=== PATIENT | female | born 1960 | race Caucasian/White ===

== ENCOUNTER 2018-01-22 22:20 | Emergency (ER) | payer SELFPAY ==
[2018-01-22 22:20] VITALS: BP 136/81; PULSE 75; RESP 15; TEMP 36; O2SAT 98; BMI 22.6
--- NOTE | 2018-01-22 23:06 | EKG12_ITS ---
Test Reason : SOB Blood Pressure : / mmHG Vent. Rate : 076 BPM Atrial Rate : 076 BPM P-R Int : 148 ms QRS Dur : 092 ms QT Int : 400 ms P-R-T Axes : 062 012 024 degrees QTc Int : 450 ms Normal sinus rhythm Normal ECG Confirmed by GERMAN WILSON, JAHAIRA ([id number]), web editor ODESSA CRUZ ([id number] on 01/28/2018 2:00:48 PM Referred By: JATIN Confirmed By:JAHAIRA PORTER MD
--- NOTE | 2018-01-22 23:07 | ED.VISSUMM ---
- ER Visit Summary Date of Service: 01/22/18 Chief Complaint: Shortness of breath History of Present Illness: The patient is a 57 F who states that 2-3 weeks ago she had a tooth pulled on the right lower side. Since that time she notes sinus congestion headache neckache shortness of breath fatigue irritability weak and dizzy. States tonight she went to get off the couch and her heart rate was in the 90s. No distinct chest pain. She sees a homeopathic doctor. Physical Examination: Afebrile vital signs are stable Gen: Well-nourished well-developed Head: Normocephalic atraumatic Eyes: Perrl EOMI ENT: TMs clear no rhinorrhea moist mucous membranes Neck: Supple no lymphadenopathy no JVD nontender CVS: Regular rate rhythm no murmurs normal S1-S2 Respiratory: No distress clear to auscultation bilaterally chest nontender Abdomen: Soft nontender nondistended normal bowel sounds no masses Back: Nontender Extremity: Nontender no edema Skin: Normal color no rash Neuro: alert orientated ?3 CN II-XII intact normal strength sensation reflexes gait cerebellar Psych: Anxious Test Results: CBC chemistries liver negative troponin less than 0.02. TSH within the normal range EKG sinus at a rate of 76. Chest x-ray showed chronic changes. Emergency Department Course and Treatment: Patient did not wish to have anything for her headache she was offered Toradol. Patient has fairly vague symptoms. I do not find anything focal on exam. I do not believe this to be stroke, pulmonary embolism, ACS. She is current chest x-ray showed chronic changes. She smoked only for small amount of time in her 20s. 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 I do not hear any wheezing suspect that this is a pulmonary source. Patient is going to be referred to primary care. Impression: 1. Dyspnea 2. Fatigue 3. Headache This note was generated with [employer] dictation software. It may contain incorrect words, spelling, and punctuation that were not noted in review of the chart prior to signing ED Disposition - Plan for ED Patient: Disposition: Home or Assisted Living Chief Complaint: Shortness of Breath Instructions: ED Weakness [facility] Referrals: Care Physician,No Primary [Primary Care Provider] - Lea Angeles MD [STAFF PHYSICIAN] - (call to arrange follow up appointment) Additional Instructions: you may call the PCP of your choice or the referral above.
--- NOTE | 2018-01-22 23:10 | ED.RN ---
NO OLD EKG'S IN MUSE
[2018-01-22 23:26] VITALS: O2SAT 99
[2018-01-22 23:40] LABS: Absolute Lymphocyte Count 1.87 X10^3/ul (0.83-4.51); Absolute Neutrophil Count 5.8 X10^3/uL (2.0-7.7); Basophil# 0.02 X10^3/uL; Basophil% 0.2 % (0-1); Eosinophil# 0.44 X10^3/uL; Hematocrit 39.1 % (37-47); Hemoglobin 13.1 g/dl (12.0-15.0); Lymphocyte # 1.87 X10^3/ul (4.0); Lymphocyte % 21.3 % (19-41); Mean Corp Hgb Conc 33.5 g/gl (32-36); Mean Corpuscular Hgb 29.6 pg (27.0-32.0); Mean Corpuscular Volume 88.3 fL (81-99); Mean Platelet Vol. 9.1 fl (6.2-12.0); Monocyte# 0.58 X10^3/uL; Monocyte% 6.6 % (0-10); Neutrophil # 5.84 X10^3/uL (2.7-7.7); Neutrophil % 66.8 % (47-70); Platelet Count 270 K/mm3 (150-450); RBC Distribution Width SD 42.1 fl (35.1-43.9); Red Blood Count 4.43 M/mm3 (4.2-5.4); White Blood Count 8.8 K/mm3 (4.4-11.0)
--- NOTE | 2018-01-22 23:40 | RAD_ITS ---
STUDY: X-RAY CHEST REASON FOR EXAM: Female, 57 years old. Shortness of breath TECHNIQUE: PA and lateral views of the chest. COMPARISON: None. FINDINGS: Hyperexpansion of the lungs. Mild prominence of interstitial lung markings at the lung bases. No confluent airspace opacity. No pleural effusion or pneumothorax. Normal size heart. Normal mediastinum and sneha. Normal visualized pulmonary arteries. Normal visualized aortic arch and descending thoracic aorta. Normal visualized thoracic spine. Normal visualized ribs, clavicles, and shoulders. There is no demonstrated abnormality of the visualized soft tissue structures of the upper abdomen. RAD/Chest PA and Lateral IMPRESSION: Chronic obstructive and interstitial change with no evidence of acute cardiopulmonary disease.. Electronically Signed: Rocco Solares MD at 0:13 EST Tel , Service support ,
[2018-01-22 23:44] LABS: POSITIVE COUNT NO; POSITIVE DIFFERENTIAL NO; POSITIVE MORPHOLOGY NO
[2018-01-23 00:09] LABS: ALB/GLOB Ratio 1.1 RATIO (0.9-2.4); AST(SGOT) 12 U/L (15-37); Alanine Aminotransfer ALT/SGPT 24 U/L (13-56); Albumin, Serum 3.9 g/dL (3.2-5.0); Alkaline Phosphatase 63 U/L (45-117); Anion Gap 6 (5-15); BUN 14 mg/dL (7-18); BUN/Creat Ratio 21.4 RATIO (10-20); Calcium,Total 9.1 mg/dL (8.5-10.1); Chloride 107 mmol/L (98-107); Creatinine, Serum 0.65 mg/dL (0.55-1.02); EST Glomerular Filtration Rate 99 mL/min (>60); Est Glom Filt Rate - Afr Amer 120 mL/min (>60); Estimated Creatinine Clearance 89.39 ml/min; Globulin 3.7 g/dL (2.2-4.2); Glucose 94 mg/dL (74-106); Potassium 4.1 mmol/L (3.5-5.1); Protein, Total 7.6 g/dL (6.4-8.2); Sodium Level 143 mmol/L (136-145); Thyroid Stim Hormone (TSH) 3.13 uIU/mL (0.358-3.74)
[2018-01-23 00:55] VITALS: BP 128/74; PULSE 79; RESP 17; O2SAT 99
[2018-01-23 01:14] VITALS: BP 128/67; PULSE 66; RESP 14; O2SAT 99
== END 2018-01-23 01:15 | disposition home or self-care (01) ==
PROVIDERS: Emergency Provider Emergency Medicine
DX: R06.00 Dyspnea, unspecified (principal); R53.83 Other fatigue; R51 Headache; R09.81 Nasal congestion; M54.2 Cervicalgia; R53.1 Weakness; R42 Dizziness and giddiness; R45.4 Irritability and anger; Z86.711 Personal history of pulmonary embolism
CPT/HCPCS: 71046; 80053; 84443; 84484; 85025; 93005; 99284; A4216